=== PATIENT | male | born 1980 | race Asian ===

== ENCOUNTER → 2020-07-21 | Outpatient (CLI) | payer BC ==
[~2020-07-21] MED LIST: BUPR300T92 PO; CYCL10TA2 PO; MULT-245 PO; OMEP20TA8 PO; ONDA4TAB7 PO; TAMS0.4C97 PO; VALS1TAB8 PO
== END ==
LOC: LAB 10:47
PROVIDERS: ATTEND Surgery
DX: Z01.812 Encounter for preprocedural laboratory examination (principal); K43.2 Incisional hernia without obstruction or gangrene; Z20.822 Contact with and (suspected) exposure to COVID-19
CPT/HCPCS: U0003

== ENCOUNTER 2020-07-24 07:49 | Observation (INO) | payer BC ==
[2020-07-24] VITALS (10 sets, daily range): BP systolic 117–131; BP diastolic 59–92
[~2020-07-24] VITALS: Ht 172.7 cm; Wt 90.0 kg
[~2020-07-24 07:49] MED LIST changes: +ACETAMINOPHEN 500 MG TABLET PO PRN; +BUPIVACAINE-EPI 0.25% 30 ML VIAL KIT. ONE; +IV RINGERS,LACTATED 1000ML 1,000 ML IV SCH; +MORPHINE SULFATE 2 MG/ML VIAL. IVP PRN; +PROCHLORPERAZINE 10 MG/2 ML VIAL. IVP PRN; +fentaNYL PF VIAL 100 MCG/2 ML VIAL IVP PRN
[2020-07-24] MEDS ORDERED: PROPOFOL 10 MG/ML (20ML) VIAL. IV ONE (09:39)
[2020-07-24] MEDS ORDERED: ONDANSETRON PF 4 MG/2 ML VIAL. ONE (09:39)
[2020-07-24] MEDS ORDERED: SUCCINYLCHOLINE 200 MG/10 ML VIAL. ONE (09:39)
[2020-07-24] MEDS ORDERED: DEXAMETHASONE SOD PHOS 4 MG/ML VIAL ONE (09:39)
[2020-07-24] MEDS ORDERED: fentaNYL PF VIAL 100 MCG/2 ML VIAL ONE ×2 (09:39→13:24)
[2020-07-24] MEDS ORDERED: ROCURONIUM 50 MG/5 ML VIAL. ONE ×3 (09:39→11:45)
[2020-07-24] MEDS ORDERED: LIDOCAINE 2% PF 5 ML VIAL. ONE (09:39)
[2020-07-24] MEDS ORDERED: FAMOTIDINE 20 MG/2 ML VIAL ONE (09:40)
[2020-07-24] MEDS ORDERED: MIDAZOLAM HCL/PF 2 MG/2 ML VIAL. ONE (09:40)
[2020-07-24] MEDS ORDERED: GLYCOPYRROLATE 1 MG/5 ML VIAL. ONE (10:33)
[2020-07-24] MEDS ORDERED: ePHEDrine PF IN SALINE 50 MG/10 ML SYRINGE. IV ONE (11:22)
[2020-07-24] MEDS ORDERED: PHENYLEPHRINE in 0.9% NACL PF 1 MG/10 ML SYRINGE. IV ONE (11:22)
[2020-07-24] MEDS ORDERED: NEOSTIGMINE METHYLSULFATE 5 MG/5 ML SYRINGE. ONE (11:31)
[2020-07-24] MEDS ORDERED: MORPHINE SULFATE 10 MG/ML VIAL. ONE (11:58)
[2020-07-24] MEDS ORDERED: KETOROLAC 30 MG/ML VIAL. ONE (12:30)
--- NOTE | 2020-07-24 12:41 | PDOC4 ---
Operative Note Operative Note Date: 2020 at 1235 Preoperative diagnosis: Recurrent ventral incisional hernia Postoperative diagnosis: Same Procedure: Open ventral hernia repair with mesh, removal of old mesh, component separation Surgeon: Nelson Levin assist: Alvino Dictation: Patient is a 39-year-old male who had undergone bariatric surgery with complications with a repeat laparotomy subsequently developed incisional hernia this was repaired with mesh returns now with a recurrence of his hernia. Procedure of open ventral hernia repair with mesh was explained to the patient as well as component separation all risk benefits were also discussed occluding bleeding infection alternatives to this procedure also discussed with the patient who seemed to understand and gave both verbal and written consent to have the procedure performed. Patient was taken to the operating room placed in the supine position general anesthesia was initiated once patient was sleeping in bed his abdomen was prepped and draped usual sterile fashion using ChloraPrep. Ioban was then placed over the abdomen a midline incision was made excising his previous scar from the xiphoid to just below the umbilicus. This was carried down through the subcutaneous tissues electrocautery right hemostasis hernia sac was dissected free of its attachments with electrocautery and then opened to allow access to the abdomen there were few adhesions within the abdomen there is a band of omentum stuck down to the pelvis this was freed up sharply and excised and sent for pathology. Incision was made in the posterior fascia freeing this up from the attachments to the muscle out laterally circumferentially around the fascial defect it was noted on the right side of the fascial defect there was a piece of mesh somewhat wadded up on the right upper quadrant this was sharply excised with electrocautery and removed. Once posterior fascia was freed up the relaxing incisions were made in the oblique muscles just medial to the perforating vessels this allowed for much mobilization of the posterior fascia. Posterior fascia was then closed with a running looped PDS in the midline. Bard Ventio mesh 22 x 27 cm was placed over the posterior fascia left for some uncovered area in the epigastric so a ventral light ST mesh was placed in the epigastric area in the same plane as the Ventrio. The mesh was sutured to the anterior fascia with 0 Prolene's 6 sutures were used. Secure strap tacker was then used to tack the mesh to the anterior fascia circumferentially. The epigastric mesh was sewn to theVentrio mesh with 0 Prolene. The anterior fascia were then closed over the mesh with a running 0 PDS the deep subcutaneous layer was closed with running 3-0 Vicryl and the skin was reapproximated for subcuticular Monocryl Mastisol Steri-Strips and 4 x 4's Medipore tape were applied as dressing. Patient was awakened and extubated operating room taken to recovery in stable condition all sponge instrument needle counts listed as correct estimated blood loss 150 mL MANASA FLANNERY MD Jul 24, 2020 12:41
[2020-07-24] MEDS ORDERED: oxyCODONE/APAP 5/325 1 TAB TABLET PO PRN (12:45)
[2020-07-24] MEDS ORDERED: 0.9 % SODIUM CHLORIDE 10 ML DISP.SYRIN. IV PRN (12:45)
[2020-07-24] MEDS ORDERED: ONDANSETRON PF 4 MG/2 ML VIAL. IV PRN (12:45)
[2020-07-24] MEDS ORDERED: SEVOFLURANE > 120 MINUTES. IH ONE (13:06)
[2020-07-24] MEDS: fentaNYL PF VIAL 100 MCG/2 ML VIAL IVP PRN ×2 (13:27→13:33)
[2020-07-24] MEDS ORDERED: HYDROmorphone 2 MG/ML VIAL ONE (13:48)
[2020-07-24] MEDS: HYDROmorphone 2 MG/ML VIAL IVP PRN ×4 (13:51→14:28)
[2020-07-24] MEDS: IV DEXTROSE 5%-LACT RINGERS 1,000 ML IV SCH (14:43)
[2020-07-24] MEDS: cefOXitin SODIUM IV Push 1 GM VIAL. IVP SCH ×2 (14:45→21:03)
[2020-07-24] MEDS: KETOROLAC 15 MG/ML VIAL. IV SCH (16:49)
[2020-07-24] MEDS: MORPHINE SULFATE 2 MG/ML VIAL. IV PRN ×2 (18:44→22:13)
[2020-07-24] MEDS: oxyCODONE/APAP 5/325 1 TAB TABLET PO PRN (21:08)
[2020-07-25] MEDS: KETOROLAC 15 MG/ML VIAL. IV SCH ×5 (00:08→23:23)
[2020-07-25 03:00] VITALS: BP 125/74
[2020-07-25] MEDS: IV DEXTROSE 5%-LACT RINGERS 1,000 ML IV SCH ×2 (04:50→16:06)
[2020-07-25] MEDS: oxyCODONE/APAP 5/325 1 TAB TABLET PO PRN ×3 (04:52→21:03)
[2020-07-25] MEDS: cefOXitin SODIUM IV Push 1 GM VIAL. IVP SCH (05:37)
[2020-07-25 07:00] VITALS: BP 132/78
--- NOTE | 2020-07-25 09:50 | NUR ---
SW following. Discussed with RN, pt from home alone, room air, clear liquid diet, COVID-19 negative. Per RN pt gets around fine. RN advised no SW needs at this time. Anticipate discharge home with self care in the next day or so. SW will continue to follow.
--- NOTE | 2020-07-25 10:12 | PDOC ---
SURGICAL PROGRESS NOTE DATE: 07/25/20 TIME: 10:11 Subjective tolerating clears urinating has not walked yet Vital Signs Vital Signs Date Time Temp Pulse Resp B/P (MAP) Pulse Ox O2 Delivery O2 Flow Rate FiO2 07/25/20 07:00 97.7 101 18 132/78 (96) 94 Room Air 97.7 07/24/20 22:08 2.0 I&O Intake and Output 07/25/20 07:00 Intake Total 3950 ml Output Total 1150 ml Balance 2800 ml Intake Oral 400 ml IV Total 3550 ml Output Urine Total 1000 ml Estimated Blood Loss 150 ml # Voids 2 General: Alert, Oriented X3, Cooperative Abdomen: Soft, Other (ND, binder in place) Assessment/Plan s/p hernia repair advance diet ambulate likely home tomorrow Justicifation of Admission Dx: Justifications for Admission: Justification of Admission Dx: Yes Comments: hernia KAREN ARGUETA APRN Jul 25, 2020 10:12
[2020-07-25] MEDS ORDERED: OXYC1TAB15 PO (10:13)
--- NOTE | 2020-07-25 10:16 | DISCH ---
DISCHARGE INSTRUCTIONS Condition on Discharge Condition on Discharge: Stable Activity After Discharge Activity Instructions for Disc: Activity as tolerated Bathing Instructions: Shower-keep dressing dry, No Tub Bath until see Lifting Instructions after Dis: No heavy lifting (15 lba), No pulling or pushing Driving Instructions after Dis: Do not drive Diet after Discharge Diet after Discharge: Regular Wound Incision Care Wound/Incision Care: Change dressing, May get incision wet Other wound/incision instructi: kallie abdominal binder Contacting the after DC Call your doctor for: Concerns you may have Follow-Up Follow up with: Dr Damon 2 weeks call to schedule [phone] KAREN ARGUETA APRN Jul 25, 2020 10:16
[2020-07-25 11:00] VITALS: BP 152/94
[2020-07-25 15:00] VITALS: BP 142/89
[2020-07-25 19:00] VITALS: BP 158/98
[2020-07-25] MEDS ORDERED: TAMSULOSIN 0.4 MG CAP.ER.24H. PO SCH (21:00)
[2020-07-25] MEDS: MORPHINE SULFATE 2 MG/ML VIAL. IV PRN (22:11)
[2020-07-25 23:00] VITALS: BP 148/94
[2020-07-26 03:00] VITALS: BP 148/90
[2020-07-26] MEDS: KETOROLAC 15 MG/ML VIAL. IV SCH ×2 (05:33→12:00)
[2020-07-26] MEDS: IV DEXTROSE 5%-LACT RINGERS 1,000 ML IV SCH (05:34)
[2020-07-26 07:00] VITALS: BP 155/97
[2020-07-26] MEDS ORDERED: PANTOPRAZOLE 40 MG TABLET.DR. PO SCH (07:30)
[2020-07-26] MEDS ORDERED: DOCUSATE SODIUM 100 MG CAPSULE. PO SCH (09:00)
[2020-07-26] MEDS ORDERED: buPROPion XL 150 MG TAB.ER.24H. PO SCH (09:00)
[2020-07-26] MEDS ORDERED: hydroCHLOROthiazide 12.5 MG CAPSULE PO SCH (09:00)
[2020-07-26] MEDS ORDERED: LOSARTAN POTASSIUM 50 MG TABLET. PO SCH (09:00)
[2020-07-26 11:00] VITALS: BP 154/94
--- NOTE | 2020-07-26 11:59 | PDOC ---
PROGRESS NOTES Date of Service DATE: 07/26/20 TIME: 11:59 Subjective Subjective doing well Objective Objective Vital Signs Date Time Temp Pulse Resp B/P (MAP) Pulse Ox O2 Delivery O2 Flow Rate FiO2 07/26/20 09:19 155/97 07/26/20 07:00 97.9 98 18 94 Room Air 97.9 07/24/20 22:08 2.0 Intake and Output 07/26/20 07:00 Intake Total 970 ml Output Total 1350 ml Balance -380 ml Intake Oral 970 ml Output Urine Total 1350 ml # Voids 3 Assessment Assessment S/P VHR Plan Plan of Care Discharge Comment Review of Relevant I have reviewed the following items love (where applicable) has been applied. Medications Current Medications Fentanyl Citrate (Fentanyl 2ml Vial) 25 mcg PRN Q5MIN PRN IVP MILD PAIN 1-3; Start 07/24/20 at 06:00; Stop 07/24/20 at 17:04; Status DC Fentanyl Citrate (Fentanyl 2ml Vial) 50 mcg PRN Q5MIN PRN IVP MODERATE PAIN 4-6 Last administered on 07/24/20at 13:33; Start 07/24/20 at 06:00; Stop 07/24/20 at 17:04; Status DC Morphine Sulfate (Morphine Sulfate) 1 mg PRN Q10MIN PRN IVP SEVERE PAIN 7-10; Start 07/24/20 at 06:00; Stop 07/24/20 at 17:04; Status DC Ringer's Solution 1,000 ml @ 30 mls/hr Q24H IV Last administered on 07/24/20at 08:19; Start 07/24/20 at 06:00; Stop 07/24/20 at 17:59; Status DC Hydromorphone HCl (Dilaudid) 0.5 mg PRN Q10MIN PRN IVP SEVERE PAIN 7-10, 2nd CHOICE Last administered on 07/24/20at 14:28; Start 07/24/20 at 06:00; Stop 07/24/20 at 17:04; Status DC Prochlorperazine Edisylate (Compazine) 5 mg PACU PRN PRN IVP NAUSEA, MRX1 Last administered on 07/24/20at 13:53; Start 07/24/20 at 06:00; Stop 07/24/20 at 17:04 ; Status DC Acetaminophen (Tylenol) 1,000 mg 1X PREOP PRN PO PRIOR TO PROCEDURE Last administered on 07/24/20at 08:19; Start 07/24/20 at 06:00 Cefazolin Sodium/ Dextrose 50 ml @ 100 mls/hr 1X PREOP PRN IV PRIOR TO PROCEDURE Last administered on 07/24/20at 09:58; Start 07/24/20 at 06:00; Stop 07/24/20 at 18:00; Status DC Bupivacaine HCl/ Epinephrine Bitart (Sensorcain-Epi 0.25% Kit) 30 ml STK-MED ONCE .ROUTE Last administered on 07/24/20at 10:18; Start 07/24/20 at 07:19; Stop 07/24/20 at 07:19; Status DC Propofol (Diprivan) 200 mg STK-MED ONCE IV ; Start 07/24/20 at 09:39; Stop 07/24/20 at 09:39; Status DC Lidocaine HCl (Lidocaine Pf 2% Vial) 5 ml STK-MED ONCE .ROUTE ; Start 07/24/20 at 09:39; Stop 07/24/20 at 09:39; Status DC Ondansetron HCl (Zofran) 4 mg STK-MED ONCE .ROUTE ; Start 07/24/20 at 09:39; Stop 07/24/20 at 09:39; Status DC Dexamethasone Sodium Phosphate (Decadron) 4 mg STK-MED ONCE .ROUTE ; Start 07/24/20 at 09:39; Stop 07/24/20 at 09:39; Status DC Succinylcholine Chloride (Anectine) 200 mg STK-MED ONCE .ROUTE ; Start 07/24/20 at 09:39; Stop 07/24/20 at 09:40; Status DC Rocuronium [place] (Zemuron) 50 mg STK-MED ONCE .ROUTE ; Start 07/24/20 at 09:39; Stop 07/24/20 at 09:40; Status DC Fentanyl Citrate (Fentanyl 2ml Vial) 100 mcg STK-MED ONCE .ROUTE ; Start 07/24/20 at 09:39; Stop 07/24/20 at 09:40; Status DC Midazolam HCl (Versed) 2 mg STK-MED ONCE .ROUTE ; Start 07/24/20 at 09:40; Stop 07/24/20 at 09:40; Status DC Famotidine (Pepcid Vial) 20 mg STK-MED ONCE .ROUTE ; Start 07/24/20 at 09:40; Stop 07/24/20 at 09:40; Status DC Glycopyrrolate (Robinul) 1 mg STK-MED ONCE .ROUTE ; Start 07/24/20 at 10:33; Stop 07/24/20 at 10:33; Status DC Rocuronium [place] (Zemuron) 50 mg STK-MED ONCE .ROUTE ; Start 07/24/20 at 10:58; Stop 07/24/20 at 10:59; Status DC Phenylephrine HCl (PHENYLEPHRINE in 0.9% NACL PF) 1 mg STK-MED ONCE IV ; Start 07/24/20 at 11:22; Stop 07/24/20 at 11:22; Status DC Ephedrine Sulfate (ePHEDrine PF IN SALINE SYRINGE) 50 mg STK-MED ONCE IV ; Start 07/24/20 at 11:22; Stop 07/24/20 at 11:22; Status DC Neostigmine [place] (Neostigmine Methylsulfate) 5 mg STK-MED ONCE .ROUTE ; Start 07/24/20 at 11:31; Stop 07/24/20 at 11:31; Status DC Rocuronium [place] (Zemuron) 50 mg STK-MED ONCE .ROUTE ; Start 07/24/20 at 11:45; Stop 07/24/20 at 11:46; Status DC Morphine Sulfate (Morphine Sulfate) 10 mg STK-MED ONCE .ROUTE ; Start 07/24/20 at 11:58; Stop 07/24/20 at 11:58; Status DC Ketorolac Tromethamine (Toradol 30mg Vial) 30 mg STK-MED ONCE .ROUTE ; Start 07/24/20 at 12:30; Stop 07/24/20 at 12:30; Status DC Cefoxitin Sodium (Mefoxin) 1 gm Q8H IVP Last administered on 07/25/20at 05:37; Start 07/24/20 at 14:00; Stop 07/25/20 at 06:01; Status DC Sodium Chloride (Normal Saline Flush) 3 ml QSHIFT PRN IV AFTER MEDS AND BLOOD DRAWS; Start 07/24/20 at 12:45 Morphine Sulfate (Morphine Sulfate) 2 mg PRN Q3HRS PRN IV PAIN Last administered on 07/25/20at 22:11; Start 07/24/20 at 12:45 Oxycodone/ Acetaminophen (Percocet 5/325) 1 tab PRN Q4HRS PRN PO MILD PAIN, 1ST CHOICE; Start 07/24/20 at 12:45 Oxycodone/ Acetaminophen (Percocet 5/325) 2 tab PRN Q4HRS PRN PO MODERATE PAIN, SEVERE PAIN Last administered on 07/25/20at 21:03; Start 07/24/20 at 12:45 Ketorolac Tromethamine (Toradol 15mg Vial) 15 mg Q6HRS IV Last administered on 07/26/20at 05:33; Start 07/24/20 at 18:00; Stop 07/26/20 at 17:59 Ondansetron HCl (Zofran) 4 mg PRN Q6HRS PRN IV NAUSEA, 1ST CHOICE; Start 07/24/20 at 12:45 Dextrose/Lactated Ringer's 1,000 ml @ 75 mls/hr [id number] IV Last administered on 07/26/20at 05:34; Start 07/24/20 at 14:00 Sevoflurane (Ultane) 90 ml STK-MED ONCE IH ; Start 07/24/20 at 13:06; Stop 07/24/20 at 13:07; Status DC Fentanyl Citrate (Fentanyl 2ml Vial) 100 mcg STK-MED ONCE .ROUTE ; Start 07/24/20 at 13:24; Stop 07/24/20 at 13:25; Status DC Hydromorphone HCl (Dilaudid) 2 mg STK-MED ONCE .ROUTE ; Start 07/24/20 at 13:48; Stop 07/24/20 at 13:48; Status DC Docusate Sodium (Colace) 100 mg DAILY PO Last administered on 07/26/20at 09:19; Start 07/26/20 at 09:00 Tamsulosin HCl (Flomax) 0.4 mg QHS PO Last administered on 07/25/20at 21:03; Start 07/25/20 at 21:00 Bupropion HCl (Wellbutrin Xl) 300 mg DAILY PO Last administered on 07/26/20at 09:18; Start 07/26/20 at 09:00 Pantoprazole Sodium (Protonix) 40 mg DAILYAC PO Last administered on 07/26/20at 09:19; Start 07/26/20 at 07:30 Losartan Potassium (Cozaar) 100 mg DAILY PO Last administered on 07/26/20at 09:19; Start 07/26/20 at 09:00 Hydrochlorothiazide (Microzide) 12.5 mg DAILY PO Last administered on 07/26/20at 09:19; Start 07/26/20 at 09:00 Active Scripts Active Percocet 5-325 Mg Tablet (Oxycodone/Acetaminophen) 1 Each Tablet 1 Tab PO PRN Q4HRS PRN Reported Diovan Hct 160-12.5 Mg Tab (Valsartan/Hydrochlorothiazide) 1 Each Tablet 1 Each PO DAILY Multi Vitamin Daily (Multivitamin) 1 Each Tablet 1 Tab PO DAILY 30 Days Zofran (Ondansetron Hcl) 4 Mg Tablet 4 Mg PO BID PRN Bupropion Xl (Bupropion Hcl) 300 Mg Tab.er.24h 1 Tab PO DAILYWBKFT Cyclobenzaprine Hcl 10 Mg Tablet 10 Mg PO PRN 3-4XD PRN Omeprazole 20 Mg Tablet.dr 20 Mg PO DAILY Flomax (Tamsulosin Hcl) 0.4 Mg Cap.er.24h 0.4 Mg PO DAILY Vitals/I & O Vital Sign - Last 24 Hours 07/25/20 07/25/20 07/25/20 07/25/20 15:00 19:00 20:00 21:03 Temp 97.7 97.6 97.7 97.6 Pulse 92 103 Resp 18 18 20 B/P (MAP) 142/89 (106) 158/98 (118) Pulse Ox 95 95 95 O2 Delivery Room Air Room Air Room Air Room Air 07/25/20 07/25/20 07/25/20 07/25/20 22:03 22:11 22:41 23:00 Temp 97.4 97.4 Pulse 110 Resp 20 20 20 18 B/P (MAP) 148/94 (112) Pulse Ox 95 95 95 93 O2 Delivery Room Air Room Air Room Air Room Air 07/26/20 07/26/20 07/26/20 03:00 07:00 09:19 Temp 97.9 97.9 97.9 97.9 Pulse 102 98 Resp 18 18 B/P (MAP) 148/90 (109) 155/97 (116) 155/97 Pulse Ox 94 94 O2 Delivery Room Air Room Air Intake and Output 07/25/20 07/25/20 07/26/20 15:00 23:00 07:00 Intake Total 850 ml 120 ml Output Total 750 ml 600 ml Balance 850 ml -630 ml -600 ml Justifications for Admission Other Justification SUNNI DOUGHERTY MD Jul 26, 2020 11:59
--- NOTE | 2020-07-28 15:07 | PATHOLOGY ---
[facility] Accession Number: [id number] . 01 Material submitted: . PART A: gastrointestinal site - OMENTUM PART B: gastrointestinal site - MESH . 01 Clinical history: . OPEN INCISIONAL HERNIA REPAIR RECURRING INCISIONAL HERNIA . 02 Diagnosis: A. Omentum, resection: - Fat necrosis, multifocal, organizing, with reactive fibrosis, chronic inflammation, and foreign body granulomatous reaction. . B. Segment of fibromembranous and fibroadipose tissue, recurrent incisonal hernia repair: - Hernia sac with synthetic mesh showing reactive fibrosis, chronic inflammation and foreign body granulomatous reaction. (JPM:velma; 07/28/2020) S 07/28/2020 1251 Local . 02 Comment: There is no evidence of malignancy. (JPM:velma; 07/28/2020) . 02 Electronically signed: . Mason Tavares MD, Pathologist NPI- [id number] . 01 Gross description: . A. Received in formalin labeled "Mao, Otto, omentum" is an irregular, meyer yellow lobular portions of fibroadipose tissue measuring 18.1 x 8.3 x 3.1 cm. The specimen is serially sectioned to reveal lobular, meyer-yellow highly vascularized cut surface with 2 firm meyer-white to chalky yellow nodules grossly consistent with fat necrosis measuring 2.1 x 0.9 x 0.8 cm and 2.4 x 1.6 x 1.[address] Returner sections from each nodule and omentum are submitted in cassettes A1-A3. . B. Received in formalin labeled "Mao, Otto, mesh" is an irregular, meyer yellow meyer-white fibrous portion of soft tissue measuring 11.4 x 7.1 x 1.9 cm. Specimen is serially sectioned to reveal a meyer yellow meyer-white cut surface with a meyer-white meshlike material merchandiser retail representative sections of the specimen are submitted in cassette B1.([facility]; 07/25/2020) GZA/GZA 07/28/2020 1249 [facility] . 02 Pathologist provided ICD-10: K65.9, K43.2 . 02 CPT . 221235, 445172 Specimen Comment: A courtesy copy of this report has been sent to [phone] Specimen Comment: Report sent to Performed at: 01 [facility] [address] [id number] MD Terry Byrd MD Phone: [phone] Performed at: 02 [facility] [address] [place] [id number] MD Mason Tavares MD Phone: [phone]
== END 2020-07-26 13:45 | disposition home or self-care (01) ==
LOC: SURG 07:49 → EDUNIT# 10:00 → 4 NORTH 12:41
PROVIDERS: ADMIT Surgery; ATTEND Surgery
DX: K43.0 Incisional hernia with obstruction, without gangrene (principal); Z98.890 Other specified postprocedural states
CPT/HCPCS: 49566; 49568; 96361; 96374; 96375; 96376; A4215; A4364; A4930; A6253; A6402; C1781; G0378; G0379; J0330; J0690; J0694; J0780; J1100; J1170; J1885; J2250; J2270; J2370; J2405; J2704; J2710; J3010; J3490; J7121; A4452

== ENCOUNTER → 2020-10-01 | Outpatient (CLI) | payer BC ==
[~2020-10-01] MED LIST changes: -ACETAMINOPHEN 500 MG TABLET PO PRN; -BUPIVACAINE-EPI 0.25% 30 ML VIAL KIT. ONE; +CONTRAST GIVEN. MC PRN; +IOHEXOL 240 MG/ML 50ML VIAL. PO ONE; +IOHEXOL 300 MG/ML 100ML VIAL. IV ONE; -IV RINGERS,LACTATED 1000ML 1,000 ML IV SCH; -MORPHINE SULFATE 2 MG/ML VIAL. IVP PRN; +OXYC1TAB15 PO; -PROCHLORPERAZINE 10 MG/2 ML VIAL. IVP PRN; -fentaNYL PF VIAL 100 MCG/2 ML VIAL IVP PRN
--- NOTE | 2020-10-01 10:27 | RAD ---
EXAM: Abdomen and pelvis CT with intravenous contrast. HISTORY: Wound infection. TECHNIQUE: Computed tomographic images of the abdomen and pelvis were obtained following the administ ration of intravenous contrast. Multiplanar reformatting was performed. *One or more of the following individualized dose reduction techniques were utilized for this examina tion: 1. Automated exposure control. 2. Adjustment of the mA and/or kV according to patient size. 3. Use of iterative reconstruction technique. COMPARISON: None. FINDINGS: Evaluation of the lower thorax demonstrates bilateral posterior dependent atelectasis. Ther e is trace pleural fluid. The heart is normal in size. There postoperative changes involving the stom ach. No hepatic lesion is seen. The gallbladder is surgically absent. The pancreas, spleen and adrena l glands are unremarkable. There is bilateral caliectasis. There is no marguerite hydronephrosis. There is no appendicitis. There is no bowel obstruction. The urinary bladder is distended. The aorta is hong l in caliber. There is no lymphadenopathy. There is a fluid collection along the fascial plane between the ventral peritoneum and ventral abdomi nal wall musculature measuring approximately 15 cm in length, 12 cm transversely and 2.5 cm in thickn ess. There is may communicate via a small track with a fluid collection within the ventral abdominal wall fat measuring approximately 3.8 x 2.6 cm at the level of the umbilicus. There is overlying skin thickening and surrounding stranding due to relative recent surgery and suspected superimposed cellul itis. There are degenerative changes throughout the visualized spine. There is no acute or suspicious osseous finding. IMPRESSION: 1. Loculated fluid collection between the ventral abdominal wall peritoneum and ventral abdominal wal l muscular fascial plane measuring approximately 15 x 12 x 2.5 cm and likely communicating the small tract with a smaller fluid collection within the midline ventral abdominal wall subcutaneous tissues fat at the level of the umbilicus. Given the reported history of a wound infection, this likely due t o an abscess rather than hematoma/seroma. No intraperitoneal collection is seen. 2. Postoperative changes involving the stomach and small bowel. There is no evidence of bowel obstruc tion or anastomotic dehiscence. 3. Bilateral renal caliectasis. There is no hydronephrosis or suspicious renal lesion. Electronically signed by: Marcelle Singh MD (10/01/2020 10:24 AM) [id number]
== END ==
LOC: CT 08:05
PROVIDERS: ATTEND Nurse Practitioner Family
DX: T81.49XA Infection following a procedure, other surgical site, initial encounter (principal); N28.89 Other specified disorders of kidney and ureter
CPT/HCPCS: 74177; Q9966; Q9967

== ENCOUNTER 2020-10-09 08:10 | Outpatient (CLI) | payer BC ==
[2020-10-09] VITALS (7 sets, daily range): BP systolic 128–149; BP diastolic 73–85
[~2020-10-09 08:10] MED LIST changes: -CONTRAST GIVEN. MC PRN; -IOHEXOL 240 MG/ML 50ML VIAL. PO ONE; -IOHEXOL 300 MG/ML 100ML VIAL. IV ONE
[2020-10-09] MEDS ORDERED: SILD20TA4 PO (08:31)
[2020-10-09 09:08] LABS: BASO # 0.1 x10^3/uL (0.0-0.2); BASO % 1 % (0-3); CALCIUM 8.8 mg/dL (8.5-10.1); CREATININE 0.8 mg/dL (0.7-1.3); EOS # 0.1 x10^3/uL (0.0-0.7); EOS % 2 % (0-3); GFR 107.1; HEMATOCRIT 41.6 % (39.0-53.0); HEMOGLOBIN 13.8 g/dL (13.0-17.5); LYMPH # 1.5 x10^3/uL (1.0-4.8); LYMPH % 20 % (24-48); MEAN CORPUSCULAR HEMOGLOBIN 30 pg (25-35); MEAN CORPUSCULAR HGB CONC 33 g/dL (31-37); MEAN CORPUSCULAR VOLUME 90 fL (79-100); MONO # 0.8 x10^3/uL (0.0-1.1); MONO % 11 % (0-9); NEUT % 67 % (31-73); PLATELET COUNT 199 x10^3/uL (140-400); POTASSIUM 3.6 mmol/L (3.5-5.1); RED BLOOD COUNT 4.65 x10^6/uL (4.30-5.70); RED CELL DISTRIBUTION WIDTH 13.9 % (11.5-14.5); WHITE BLOOD COUNT 7.4 x10^3/uL (4.0-11.0)
[2020-10-09 09:17] LABS: PROTHROMBIN TIME PATIENT 11.8 SEC (11.7-14.0)
[2020-10-09] MEDS ORDERED: LIDOCAINE WITH 8.4% SOD BICARB 3 ML DISP.SYRIN. ONE (09:26)
[2020-10-09] MEDS ORDERED: MIDAZOLAM HCL/PF 2 MG/2 ML VIAL. ONE (10:20)
[2020-10-09] MEDS ORDERED: fentaNYL PF VIAL 100 MCG/2 ML VIAL ONE (10:20)
[2020-10-09] MEDS ORDERED: fentaNYL PF VIAL 100 MCG/2 ML VIAL IV ONE (10:45)
[2020-10-09] MEDS ORDERED: MIDAZOLAM HCL/PF 2 MG/2 ML VIAL. IV ONE (10:45)
[2020-10-09] MEDS ORDERED: LIDOCAINE WITH 8.4% SOD BICARB 3 ML DISP.SYRIN. IJ ONE (10:45)
--- NOTE | 2020-10-09 11:06 | PDOC ---
Exam Customer Support Analyst Customer Support Analyst Gerry Pre-Procedure Diagnosis Pre-Procedure Diagnosis Seroma, abdominal wall post op Post-Procedure Diagnosis Post-Procedure Diagnosis same, but with interval spontaneous decompression via wound in upper incision. Procedure Performed Procedure Performed US guided aspiration yields only 5 cc of fluid. Sent for culture. Called Dr Damon and explained findings. Patient to followup up in clinic for wound care SALLY . Type of Anesthesia Type of Anesthesia mod sed Estimated Blood Loss EBL: 0 Specimens Specimans abdominal collection aspirate Drain/Tubes Drains/Tubes none Disposition Disposition CVOBS for recover F/U with Dr Damon, as discussed. KENDY LAUGHLIN MD Oct 09, 2020 11:06
--- NOTE | 2020-10-09 11:29 | NUR ---
Patient's PIV removed, instructions provided on site care. Informed patient to followup w/ Dr. Damon regarding drainage. Patient and family verbalized understanding. VS stable. All belongings taken w/ patient at time of d/c.
--- NOTE | 2020-10-10 08:00 | RAD ---
Ultrasound-guided aspiration, anterior abdominal wall fluid collection 10/09/2020 Clinical Indication: Abdominal Fluid Collection, postop abdominal hernia repair with component separation and mesh Discussion: The procedure was explained in its entirety to the patient or the patients designated charter representative by a member of the treatment team, including a discussion of the risks, benefits and commonly accepted alternatives to the procedure, as well as the expected consequences of no therapy whatsoever. Discussion of the risks included, but was not limited to, those that are most frequent and those that are rare but possibly severe or life-threatening, as well as the possibility of unforeseen complications. All elements of maximal sterile barrier technique including the use of a cap, mask, sterile gown, sterile gloves, large sterile sheet, appropriate hand hygiene, and 2% chlorhexidine for cutaneous antisepsis (or acceptable alternative antiseptic per current guidelines) were followed for this procedure. On physical exam there is now an open wound, approximately 1 to 2 cm in size along the superior aspect of the incision. Serous fluid is seen freely leaking from this wound. Ultrasound evaluation demonstrated significantly reduced amount of subcutaneous fluid within the anterior abdominal wall with respect to CT imaging. Decision to aspirate some of this fluid for Gram stain and culture was made. The overlying skin was prepped and draped using sterile barrier technique. 1% lidocaine was administered for local anesthesia. A 5 Greek sheath needle was advanced into the fluid collection. 5 cc of serosanguineous fluid was removed. Sheath was removed. Manual pressure was held. No immediate complications were identified. The procedures performed under conscious sedation including continuous cardiopulmonary monitoring via dedicated sedation nurse. [id number] sedation time: 20 minutes Impression: Ultrasound-guided aspiration anterior abdominal wall fluid collection
== END 2020-10-09 11:30 | disposition home or self-care (01) ==
LOC: INTRAD 08:10
PROVIDERS: ATTEND Surgery
DX: T88.8XXA Other specified complications of surgical and medical care, not elsewhere classified, initial encounter (principal); T81.49XA Infection following a procedure, other surgical site, initial encounter; I10 Essential (primary) hypertension; K21.9 Gastro-esophageal reflux disease without esophagitis; F41.9 Anxiety disorder, unspecified; F32.9 Major depressive disorder, single episode, unspecified; N40.0 Benign prostatic hyperplasia without lower urinary tract symptoms; Z20.822 Contact with and (suspected) exposure to COVID-19; Z87.891 Personal history of nicotine dependence; Z79.899 Other long term (current) drug therapy; Z98.890 Other specified postprocedural states; X58.XXXA Exposure to other specified factors, initial encounter; Y93.89 Activity, other specified; Y92.89 Other specified places as the place of occurrence of the external cause; Y99.8 Other external cause status
CPT/HCPCS: 10030; 36415; 80048; 85025; 85610; 87071; 87075; 87426; 99152; C1892; J2250; J3010; J3490